=== PATIENT | female | born 1995 | race American Indian/Alaskan Native ===

== ENCOUNTER 2021-02-08 11:29 | Outpatient (CLI) | payer MEDICAID ==
[2021-02-08 12:08] VITALS: BP 117/73
[2021-02-08] MEDS ORDERED: LACTATED RINGERS 1,000 ML IV ONE (12:09)
== END 2021-02-08 12:39 | disposition home or self-care (01) ==
LOC: TRG 11:29 → APU 11:30 → TRG 12:39
PROVIDERS: ATTEND Obstetrics & Gynecology
DX: Z34.93 Encounter for supervision of normal pregnancy, unspecified, third trimester (principal); Z3A.37 37 weeks gestation of pregnancy
CPT/HCPCS: 59025

== ENCOUNTER 2021-02-19 04:02 | Inpatient (IN) | payer MEDICAID ==
[2021-02-19] MEDS ORDERED: LOPERAMIDE 2 MG CAP PO PRN (10:43)
[2021-02-19] MEDS ORDERED: METHYLERGONOVINE MALEATE 0.2 MG/ML VIAL IM PRN (10:43)
[2021-02-19] MEDS ORDERED: TERBUTALINE 1 MG/1 ML INJ SUB-Q PRN (11:00)
[2021-02-19] MEDS ORDERED: LIDOCAINE (2%) 20 MG/1 ML VIAL 20 ML MDV INFILTRATI NR (11:00)
[2021-02-19] MEDS ORDERED: ePHEDrine SULFATE 50 MG/1 ML INJ IV PRN (11:00)
[2021-02-19] MEDS ORDERED: ACETAMINOPHEN 325 MG TAB PO PRN (11:00)
[2021-02-19] MEDS ORDERED: OXYTOCIN 10 UNIT/1 ML INJ IM PRN (11:00)
[2021-02-19] MEDS ORDERED: miSOPROStol 200 MCG TAB PR PRN (11:00)
[2021-02-19] MEDS ORDERED: OXYTOCIN DRIP 30 UNITS/500 ML BAG IV SCH ×4 (11:00→21:30)
[2021-02-19] MEDS ORDERED: BUTORPHANOL 2 MG/1 ML INJ IV PRN (11:00)
[2021-02-19] MEDS ORDERED: CARBOPROST TROMETHAMINE 250 MCG/1 ML INJ IM PRN (11:00)
[2021-02-19] MEDS ORDERED: fentaNYL 100 MCG/2 ML INJ IV PRN (11:00)
[2021-02-19] MEDS ORDERED: NALOXONE 0.4 MG/1 ML INJ IV PRN ×2 (11:00→21:30)
[2021-02-19] MEDS ORDERED: ONDANSETRON 4 MG/2 ML INJ IV PRN ×2 (11:00→21:30)
[2021-02-19 11:10] LABS: Hematocrit 40.4 % (30.3-42.9); Hemoglobin 13.8 gm/dl (10.1-14.3); Mean Corpuscular HGB Conc 34 % (30-34); Mean Corpuscular Volume 83 fl (79-97); Platelet Count 147 K/mm3 (140-440); Red Blood Count 4.89 M/mm3 (3.65-5.03); Red Cell Distribution Width 14.8 % (13.2-15.2)
[2021-02-19] MEDS: LACTATED RINGERS 1,000 ML IV SCH ×3 (11:50→17:20)
--- NOTE | 2021-02-19 13:23 | History and Physical Report ---
History of Present Illness Date of examination: 02/19/21 Date of admission: 02/19/21 Chief complaint: contractions History of present illness: Pt is a 25 year old -Japanese primigravida KATHE 02/26/21 at 39w0d who presents with painful regular contractions cervical change from 3 to 5 cm. She denies vaginal bleeding or leakage of fluid. 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 She is GBS negative. 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: chlamydia (treated with negative test of cure ), gonorrhea (treated with negative test of cure ), trichomonas (treated with negative test of cure ) Family/Genetic History: cancer Social history: no significant social history - Obstetrical History Expected Date of Delivery: 02/26/21 Actual Gestation: 39 Week(s) 0 Day(s) : 1 Medications and Allergies Allergies Allergy/AdvReac Type Severity Reaction Status Date / Time No Known Allergies Allergy Verified 02/08/21 12:08 Active Meds: Active Medications Acetaminophen (Acetaminophen 325 Mg Tab) 650 mg PO Q4H PRN PRN Reason: Pain, Mild (1-3) Butorphanol Tartrate (Butorphanol 2 Mg/1 Ml Inj) 1 mg IV Q2H PRN PRN Reason: Pain, Moderate(4-6) LABOR PAIN Carboprost Tromethamine (Carboprost Tromethamine 250 Mcg/1 Ml Inj) 250 mcg IM ONCE PRN PRN Reason: Uterine Bleeding Stop: 02/20/21 10:59 Ephedrine Sulfate (Ephedrine Sulfate 50 Mg/1 Ml Inj) 10 mg IV Q2M PRN PRN Reason: Hypotension Fentanyl (Fentanyl 100 Mcg/2 Ml Inj) 100 mcg IV Q2H PRN PRN Reason: Pain,Severe (7-10) LABOR PAIN Last Admin: 02/19/21 11:38 Dose: 100 mcg Documented by: Oxytocin/Sodium Chloride (Pitocin/Ns 30 Unit/500ml) 30 units in 500 mls @ 2 mls/hr IV TITR WILBERT; Protocol Lactated Ringer's (Lactated Ringers) 1,000 mls @ 125 mls/hr IV DIRECT WILBERT Last Admin: 02/19/21 11:50 Dose: 125 mls/hr Documented by: Oxytocin/Sodium Chloride (Pitocin/Ns 30 Unit/500ml) 30 units in 500 mls @ 40 mls/hr IV TITR WILBERT; Protocol Lidocaine (Lidocaine (2%) 20 Mg/1 Ml Vial 20 Ml Mdv) 20 ml INFILTRATI ONCE NR Stop: 02/19/21 16:00 Loperamide HCl (Loperamide 2 Mg Cap) 2 mg PO ONCE PRN PRN Reason: give with Hemabate Stop: 02/20/21 10:42 Methylergonovine Maleate (Methylergonovine Maleate 0.2 Mg/Ml Vial) 0.2 mg IM ONCE PRN PRN Reason: Uterine Bleeding Stop: 02/20/21 10:42 Mineral Oil (Mineral Oil 30 Ml Oral Liqd) 30 ml PO QHS PRN PRN Reason: Constipation Misoprostol (Misoprostol 200 Mcg Tab) 800 mcg HI ONCE PRN PRN Reason: Uterine Bleeding Stop: 02/20/21 10:59 Naloxone HCl (Naloxone 0.4 Mg/1 Ml Inj) 0.1 mg IV Q2MIN PRN PRN Reason: Res Rate </= 8 or 02 SAT < 92% Ondansetron HCl (Ondansetron 4 Mg/2 Ml Inj) 4 mg IV Q8H PRN PRN Reason: Nausea And Vomiting Oxytocin (Oxytocin 10 Unit/1 Ml Inj) 10 unit IM ONCE PRN PRN Reason: Uterine Bleeding Stop: 02/20/21 10:59 Terbutaline Sulfate (Terbutaline 1 Mg/1 Ml Inj) 0.25 mg SUB-Q ONCE PRN PRN Reason: Hyperstimulation/Hypertonicity Stop: 02/20/21 10:59 Review of Systems All systems: negative - Vital Signs Vital signs: Vital Signs Pulse BP 94 H 106/72 02/19/21 04:30 02/19/21 04:30 Temp Pulse Resp BP Pulse Ox 97.7 F 105 H 16 125/81 100 02/19/21 11:51 02/19/21 13:22 02/19/21 09:21 02/19/21 12:49 02/19/21 13:22 - Physical Exam Breasts: Positive: deferred Abdomen: Positive: soft (obese, gravid ) Genitourinary (Female): Positive: normal external genitalia Uterus: Positive: enlarged (gravid ) Extremities: Positive: normal - Obstetrical FHR: auscultation normal Uterine Contraction Monitor Mode: External Cervical Dilatation: 5 Uterine Contraction Pattern: Regular Uterine Tone Measurement Phase: Resting Uterine Contraction Intensity: Moderate Results Result Diagrams: 02/19/21 10:09 Abnormal lab results 02/19/21 Range/Units 10:09 WBC 11.1 H (4.5-11.0) K/mm3 All other labs normal. Assessment and Plan A: IUP at 39w0d Active labor Morbid Obesity Silent Alpha Thalassemia carrier status GBS Negative P: Admit to labor and delivery Routine intrapartum care [place] monitor maternal and status
--- NOTE | 2021-02-19 14:30 | Anesthesia Consultation ---
Anesthesia Consult and Med Hx Date of service: 02/19/21 - Airway Anesthetic Teeth Evaluation: Good ROM Head & Neck: Adequate Intubation Access Assessment: Probably Good - Pre-Operative Health Status Proposed Anesthetic Plan: Epidural - Pulmonary Hx Smoking: No Hx Asthma: No Hx Respiratory Symptoms: No SOB: No COPD: No Home Oxygen Therapy: No Hx Pneumonia: No Hx Sleep Apnea: No - Cardiovascular System Hx Hypertension: No Hx Coronary Artery Disease: No Hx Heart Attack/AMI: No Hx Angina: No Hx Percutaneous Transluminal Coronary Angioplasty (PTCA): No Hx Cardia Arrhythmia: No Hx Pacemaker: No Hx Internal Defibrillator: No Hx Valvular Heart Disease: No Hx Heart Murmur: No Hx Peripheral Vascular Disease: No - Central Nervous System Hx Neuromuscular Disorder: No Hx Seizures: No CVA: No Hx Back Pain: Yes Hx Psychiatric Problems: No - Gastrointestinal Hx Ulcer: No Hx Gastroesophageal Reflux Disease: Yes - Endocrine Hx Renal Disease: No Hx End Stage Renal Disease: No Hx Cirrhosis: No Hx Liver Disease: No Hx Insulin Dependent Diabetes: No Hx Non-Insulin Dependent Diabetes: No Hx Thyroid Disease: No Hx Hypothyroidism: No Hx Hyperthyroidism: No - Hematic Hx Anemia: Yes Hx Sickle Cell Disease: Yes (Trait) - Other Systems Hx Alcohol Use: No Hx Substance Use: No Hx Cancer: No Hx Obesity: Yes
--- NOTE | 2021-02-19 14:32 | Progress Note ---
Labor Epidural - Labor Epidural Start Time: 14:13 Stop Time: 14:17 Performed by:: ANGELICA BENNETT Procedure: Patient is requesting a laboring epidural for laboring pain. Patient IDed, H&P reviewed, all questions and concerns were answered, and consent was signed. Timeout was performed at bedside. Patient in sitting position. Sterile prep and drape was performed. [3] ml of 1% lidocaine skin wheal at L[3]- L [4]. 18- gauge Tiarra epidural needle was advanced to loss of resistance with saline technique 8cm. Negative CSF negative blood. Epidural catheter advanced to [12] centimeters. [NEGATIVE] Aspiration [NEGATIVE] test dose. Sterile dressing applied. Patient tolerated procedure.
[2021-02-19] MEDS ORDERED: fentaNYL-BUPIV 2 MCG/ML-0.125% 200 MCG/100 ML BAG EPIDURAL SCH (15:00)
[2021-02-19] MEDS ORDERED: NALOXONE 2 MG/2 ML INJ IV PRN (15:00)
[2021-02-19] MEDS: ePHEDrine SULFATE 50 MG/1 ML INJ IV PRN ×2 (15:55→16:15)
[2021-02-19] MEDS ORDERED: METOCLOPRAMIDE 10 MG/2 ML INJ IV ONE ×2 (17:30→17:41)
[2021-02-19] MEDS ORDERED: BICITRA ORAL LIQD 30ML PO ONE (17:30)
[2021-02-19] MEDS ORDERED: FAMOTIDINE 20 MG/2 ML INJ IV ONE ×2 (17:41→18:00)
[2021-02-19] MEDS ORDERED: BICITRA ORAL LIQD 30ML PO SCH (17:41)
[2021-02-19] MEDS ORDERED: LACTATED RINGERS 1,000 ML IV SCH (17:45)
[2021-02-19] MEDS ORDERED: ceFAZolin/STERILE WATER 2 GM/20 ML SYRINGE IV ONE (17:50)
[2021-02-19] MEDS ORDERED: ceFAZolin/Water 2 GM/20 ML 2 GM/20 ML SYRINGE IV NR (18:00)
[2021-02-19] MEDS ORDERED: WATER FOR IRRIG STERILE 1,500 ML BOTTLE IR ONE (18:01)
[2021-02-19] MEDS ORDERED: SODIUM CHLORIDE 0.9% IRR 1,500 ML BOTTLE IR ONE (18:01)
[2021-02-19] MEDS ORDERED: LIDOCAINE 2%/EPINEPHRINE 1:200,000 VIAL (20 ML) INFILTRATI ONE ×2 (18:05→18:06)
[2021-02-19] MEDS ORDERED: ONDANSETRON 4 MG/2 ML INJ ONE ×2 (18:10)
[2021-02-19] MEDS ORDERED: OXYTOCIN 10 UNIT/1 ML INJ ONE (18:10)
--- NOTE | 2021-02-19 18:55 | Procedure Note ---
OB Delivery Note - Delivery Date of Delivery: 02/19/21 Surgeon: JOHN MADDEN Estimated blood loss: other (1341) - Section Preop diagnosis: nonreassuring FHR tracing Postop diagnosis: same section procedure: section, primary low transverse Disposition: PACU Complications: intra-op hemorrhage, uterine atony Narrative: Please see operative report. - Infant A at 1 minute: 7 at 5 minutes: 8 Infant Gender: Female (3029g (6lb 11oz) @ 1806 pm)
[2021-02-19] MEDS ORDERED: KETOROLAC 30 MG/1 ML INJ ONE (18:56)
--- NOTE | 2021-02-19 19:02 | Operative Report ---
Operative Report Operative Report: Date of procedure: February 19, 2021 Preoperative diagnosis: 1) IUP at 39w0d 2) Nonreassuring status- Bradyhcardia 3) Morbid Obesity 4) Thick Meconium Postoperative diagnosis: Same 5) Uterine Atony 6) Intraoperative Hemorrhage Procedure: Primary low transverse section Surgeon: Ayla Herrera M.D. Anesthesia: Regional Findings: 1) Viable female , Apgars 7 and 8, weight 3029 g, (6 lb 11 oz) in cephalic presentation. Nuchal cord x 1 2) Normal-appearing uterus ovaries and tubes Estimated blood loss: 1341 mL by QBL IV fluids: 600 mL Urine output: 300 mL, clear at the end of the procedure Drains: [place] to gravity Meds: 40 units of pitocin, Methergine 0.2 mg IM Specimens: Placenta to pathology Complications:None. Counts correct x 3 Disposition: Stable to PACU Indication for procedure: Pt is a 25 year old primigravida at 39w0d who progressed to 6.5 cm with bradycardia after rupture of membranes with egress of copious amount of meconium stained amniotic fluid. The decision was made to proceed with delivery. Operation in detail: After the risks, benefits, alternatives and complications were explained to the patient she gave informed consent for the procedure. She was subsequently taken to the operating room where regional anesthesia was noted to be adequate. She was placed in the dorsal supine position with leftward tilt and prepped and draped in a normal sterile fashion. heart tones were noted prior to incision. A timeout was performed. A Pfannenstiel skin incision was made with the knife and carried down to the layer of the fascia with the Bovie. The fascia was incised in the midline and the fascial incision was extended bilaterally with the Bovie. The fascial incision was then stretched. The rectus muscles were then in the midline and partially transected for adequate visualization. The peritoneum was then entered bluntly. The peritoneal incision was extended with good visualization of the bladder. The peritoneal incision was then stretched. An Igor retractor was placed. The bladder blade was then placed. The vesicouterine peritoneum was grasped with smooth pick ups and incised with Metzenbaum scissors . A bladder flap was then created digitally and the bladder blade was replaced. A transverse incision was made in the lower uterine segment with a knife and extended bilaterally with the bandage scissors. Amniotomy was performed with egress of clear fluid. head delivered with ease, nuchal cord was reduced, followed by shoulders and body. bulb suctioned at delivery. Cord clamped and cut. handed to NICU staff in attendance. Cord blood was collected. The placenta was then delivered manually. The uterus was then exteriorized and cleared of all clots and debris. The uterus was noted to be atonic. Additional pitocin and Methergine 0.2 mg IM was administered with improvement in uterine tone. The hysterotomy was then reapproximated with 0 Monocryl in a running locked fashion. A second layer of the same suture was used in imbricating fashion. The hysterotomy was inspected and hemostasis was noted. The gutters were irrigated and cleared of all clots and debris. The hysterotomy was again inspected and noted to be hemostatic. Surgicel was placed over the hysterotomy. The Igor retractor was removed. The uterus was placed back into the peritoneal cavity. The peritoneum was reapproximated with 0 Monocryl in a running fashion incorporating the rectus muscles. Surgicel was placed over the rectus muscles. The fascia was reapproximated with 0 Vicryl in a running fashion. The subcutaneous tissue was reapproximated with 2-0 Vicryl in a running fashion. The skin was reapproximated with 3-0 Monocryl in a subcuticular fashion. The incision was then covered with steri strips and a pressure dressing. The procedure was then ended. The patient tolerated the procedure well and was taken to the PACU in stable condition. All instrument, lap, and needle counts were correct 3.
--- NOTE | 2021-02-19 20:22 | Anesthesia Day of Surgery ---
Anesthesia Day of Surgery - Day of Surgery Patient Examined: Yes Patient H&P Reviewed: Yes Patient is NPO: Yes Beta Blockers: No Cardiac Clearance: No Pulmonary Clearance: No Nate's Test: Negative
--- NOTE | 2021-02-19 20:23 | Post Anesthesia Evaluation ---
- Post Anesthesia Evaluation Patient Participated: Yes Airway Patent: Yes Stable Respiratory Function: Yes Nausea/Vomiting: No Temp > 96.8F: Yes Pain Manageable: Yes Adequeate Hydration: Yes Anesthesia Complications: No Block Receding Appropriately: Yes Patient on Ventilator: No
[2021-02-19] MEDS ORDERED: WITCH HAZEL/ GLYCERIN PAD TP PRN (21:30)
[2021-02-19] MEDS ORDERED: MORPHINE 2 MG/1 ML INJ IV PRN (21:30)
[2021-02-19] MEDS ORDERED: D5W/LACTATED RINGERS 1,000 ML IV SCH (21:30)
[2021-02-19] MEDS ORDERED: SIMETHICONE 80 MG CHEW TAB PO PRN (21:30)
[2021-02-19] MEDS ORDERED: LANOLIN/ZINC/DIMETHICONE (LANSINOH) 7 GM TP PRN (21:30)
[2021-02-19] MEDS ORDERED: MAGNESIUM HYDROXIDE (MOM) ORAL LIQD UDC PO PRN (21:30)
[2021-02-19] MEDS ORDERED: MORPHINE 4 MG/1 ML INJ IV PRN (21:30)
[2021-02-19] MEDS ORDERED: MINERAL OIL 30 ML ORAL LIQD PO PRN (22:00)
[2021-02-20] MEDS: KETOROLAC 30 MG/1 ML INJ IV SCH ×4 (00:43→18:42)
[2021-02-20] MEDS: ceFAZolin/NS 1 GM/50 ML 1 GM/50 ML BAG IV SCH ×2 (01:12→12:50)
--- NOTE | 2021-02-20 10:42 | Progress Note ---
Assessment and Plan - Patient Problems (1) Status post primary low transverse section Current Visit: Yes Status: Acute Plan to address problem: Continue routine PP orders Keep dressing clean and dry, remove on POD#2 Anticipate d/c home in 24-48 hrs if stable (2) Morbid obesity with BMI of 40.0-44.9, adult Current Visit: Yes Status: Acute Subjective - Subjective Date of service: 02/20/21 Principal diagnosis: S/P primary C/S; POD#1 Interval history: Pt is a 25 year old -[place] primigravida KATHE 02/26/21 at 39w0d who presents with painful regular contractions cervical change from 3 to 5 cm. She denies vaginal bleeding or leakage of fluid. She has had care at [facility] since 9 wks complicated by morbid obesity, silent alpha thalassemia carrier status, gonorrhea, chlamydia and trichmonas with negative test of cure on 09/17/2020. She is GBS negative. Progressed to 6.5 cm with bradycardia after rupture of membranes with egress of copious amount of meconium stained amniotic fluid. The decision was made to proceed with delivery. Patient reports: appetite normal, voiding normally, pain well controlled (with medications), flatus, ambulating normally, no bowel movement [place]: in NICU, bottle feeding Objective - Vital Signs Latest vital signs: Vital Signs Temp Pulse Resp BP Pulse Ox Pulse Ox 02/20/21 08:43 98.5 F 80 18 104/66 97 02/20/21 05:11 98.2 F 83 20 106/69 98 02/20/21 00:46 98.2 F 102 H 18 122/81 99 02/19/21 22:20 98 02/19/21 21:56 18 99 02/19/21 20:45 99 02/19/21 20:18 90 116/66 99 02/19/21 19:55 87 117/78 99 02/19/21 19:40 98.7 F 88 13 121/68 98 02/19/21 19:25 87 109/65 98 02/19/21 19:10 83 120/60 97 02/19/21 19:05 83 113/58 99 02/19/21 19:00 98.0 F 78 13 104/65 99 02/19/21 17:43 94 H 100 02/19/21 17:40 120 H 92/52 02/19/21 17:38 91 H 100 02/19/21 17:37 87 112/55 02/19/21 17:36 96 H 79/45 02/19/21 17:33 95 H 99 02/19/21 17:30 90 96/55 02/19/21 17:28 88 100 02/19/21 17:23 93 H 99 02/19/21 17:20 95 H 103/60 02/19/21 17:18 106 H 98 02/19/21 17:17 113 H 98/56 02/19/21 17:13 120 H 99 02/19/21 17:12 114 H 92/50 02/19/21 17:08 97 H 98 02/19/21 17:07 109 H 88/53 02/19/21 17:03 113 H 99 02/19/21 17:01 96 H 113/64 02/19/21 16:58 99 H 99 02/19/21 16:56 94 H 109/60 02/19/21 16:53 98 H 98 02/19/21 16:50 112 H 87/50 02/19/21 16:48 102 H 98 02/19/21 16:45 110 H 89/51 02/19/21 16:43 116 H 97 02/19/21 16:40 110 H 87/50 02/19/21 16:38 112 H 98 02/19/21 16:35 105 H 90/50 02/19/21 16:33 98 H 98 02/19/21 16:30 104 H 98/55 02/19/21 16:28 100 H 97 02/19/21 16:25 104 H 90/53 02/19/21 16:23 102 H 98 02/19/21 16:20 117 H 84/52 02/19/21 16:18 109 H 98 02/19/21 16:15 95 H 85/50 02/19/21 16:13 98 H 97 02/19/21 16:10 100 H 82/51 02/19/21 16:08 95 H 98 02/19/21 16:06 96 H 90/55 02/19/21 16:03 88 97 02/19/21 16:00 109 H 77/45 02/19/21 15:58 107 H 98 02/19/21 15:56 104 H 81/41 02/19/21 15:53 95 H 71/48 97 02/19/21 15:50 102 H 72/45 02/19/21 15:48 96 H 97 02/19/21 15:45 102 H 74/42 02/19/21 15:43 100 H 98 02/19/21 15:41 104 H 73/38 02/19/21 15:38 111 H 98 02/19/21 15:36 96 H 90/54 02/19/21 15:33 114 H 98 02/19/21 15:31 110 H 91/55 02/19/21 15:28 98 H 97 02/19/21 15:25 103 H 86/54 02/19/21 15:23 106 H 97 02/19/21 15:20 117 H 87/54 02/19/21 15:18 116 H 97 02/19/21 15:16 99 H 98/55 02/19/21 15:13 104 H 97 02/19/21 15:10 105 H 94/54 02/19/21 15:08 107 H 97 02/19/21 15:05 107 H 93/56 02/19/21 15:03 100 H 97 02/19/21 15:00 89 100/59 02/19/21 14:58 89 97 02/19/21 14:55 100 H 93/55 02/19/21 14:53 95 H 98 02/19/21 14:50 106 H 91/53 02/19/21 14:48 102 H 98 02/19/21 14:47 93 H 99/55 02/19/21 14:43 104 H 97 02/19/21 14:38 93 H 97 02/19/21 14:35 106 H 91/60 02/19/21 14:33 105 H 94/55 98 02/19/21 14:31 96 H 98/55 02/19/21 14:29 101 H 98/53 02/19/21 14:28 95 H 98 02/19/21 14:27 101 H 102/52 02/19/21 14:25 96 H 102/51 02/19/21 14:23 94 H 112/59 98 02/19/21 14:21 94 H 113/60 02/19/21 14:19 90 114/64 02/19/21 14:18 96 H 98 08/03/21 14:17 100 H 119/61 94 02/19/21 14:13 100 H 99 02/19/21 14:08 99 H 99 02/19/21 14:07 97 H 117/61 02/19/21 14:03 103 H 97 02/19/21 13:52 93 H 97 02/19/21 13:47 94 H 98 02/19/21 13:42 89 97 02/19/21 13:37 92 H 99 02/19/21 13:32 96 H 97 02/19/21 13:27 94 H 98 02/19/21 13:22 105 H 100 02/19/21 13:16 105 H 98 02/19/21 13:11 102 H 98 02/19/21 13:06 101 H 99 02/19/21 13:01 101 H 99 02/19/21 12:56 90 100 02/19/21 12:51 89 99 02/19/21 12:49 86 125/81 02/19/21 12:46 104 H 100 02/19/21 12:41 94 H 99 02/19/21 12:36 107 H 100 02/19/21 12:25 89 99 02/19/21 12:20 101 H 115/68 98 02/19/21 12:15 91 H 98 02/19/21 12:10 93 H 99 02/19/21 12:05 96 H 98 02/19/21 12:00 92 H 97 02/19/21 11:59 98 02/19/21 11:55 98 H 98 02/19/21 11:51 97.7 F 02/19/21 11:50 96 H 98 02/19/21 11:45 96 H 98 02/19/21 11:40 96 H 99 02/19/21 11:35 96 H 98 02/19/21 11:31 108 H 123/70 02/19/21 11:30 108 H 100 02/19/21 11:25 107 H 99 02/19/21 11:20 92 H 99 02/19/21 11:15 100 H 99 02/19/21 11:10 98 H 98 02/19/21 11:05 96 H 99 Intake and Output 02/19/21 02/20/21 02/20/21 23:59 07:59 15:59 Intake Total 1800 240 Output Total 3750 1000 Balance -1950 -1000 240 Intake: IV 1650 Lactated Ringers 1,000 ml 950 @ 125 mls/hr IV DIRECT WILBERT Rx#:[id number] Oral 150 Intake, Free Water 240 Output: Urine 3750 1000 Indwelling Catheter 1000 Uretheral ([place]) 1725 1000 Other: Total, Intake Amount 100 Total, Output Amount 600 Estimated Blood Loss 1,341 - Exam Breasts: Present: normal Cardiovascular: Present: Regular rate Lungs: Present: Normal air movement Abdomen: Present: soft, tenderness Uterus: Present: firm, fundal height below umbilicus (U-2) Extremities: Present: edema Deep Tendon Reflex Grade: Normal +2 Incision: Present: dressed (no shadow drainage or bleeding noted) - Labs Labs: Abnormal lab results 02/19/21 Range/Units 10:09 WBC 11.1 H (4.5-11.0) K/mm3
[2021-02-20] MEDS ORDERED: ceFAZolin/NS 1 GM/50 ML 1 GM/50 ML BAG IV ONE (12:48)
[2021-02-20] MEDS: FERROUS SULFATE 325 MG TAB PO SCH (12:50)
[2021-02-20] MEDS: oxyCODONE /ACETAMINOPHEN 5-325MG TAB PO PRN (14:35)
[2021-02-20 17:45] LABS: Hematocrit 36.1 % (30.3-42.9)
[2021-02-20] MEDS ORDERED: KETOROLAC 30 MG/1 ML INJ ONE (18:34)
[2021-02-20] MEDS ORDERED: MEASLES, MUMPS & RUBELLA 12,500 UNIT/0.5 ML VACCINE SUB-Q ONE (19:19)
[2021-02-21] MEDS: oxyCODONE /ACETAMINOPHEN 5-325MG TAB PO PRN ×3 (01:00→23:41)
[2021-02-21] MEDS ORDERED: TETANUS,DIPH,PERTUSS(ACELL) VACCINE 0.5 ML SYRINGE IM ONE (06:00)
--- NOTE | 2021-02-21 08:28 | Progress Note ---
Assessment and Plan - Patient Problems (1) Status post primary low transverse section Current Visit: Yes Status: Acute Plan to address problem: Continue routine PP orders Shower and remove dressing today, keep incision clean and dry Anticipate d/c home in 24 hrs if stable (2) Morbid obesity with BMI of 40.0-44.9, adult Current Visit: Yes Status: Acute Subjective - Subjective Date of service: 02/21/21 Principal diagnosis: S/P primary C/S; POD#2 Interval history: Pt is a 25 year old -Citizen Of [place] primigravida KATHE 02/26/21 at 39w0d who presents with painful regular contractions cervical change from 3 to 5 cm. She denies vaginal bleeding or leakage of fluid. She has had care at [facility] since 9 wks complicated by morbid obesity, silent alpha thalassemia carrier status, gonorrhea, chlamydia and trichmonas with negative test of cure on 09/17/2020. She is GBS negative. Progressed to 6.5 cm with bradycardia after rupture of membranes with egress of copious amount of meconium stained amniotic fluid. The decision was made to proceed with delivery. Patient reports: appetite normal, voiding normally, pain well controlled (with medications), flatus, ambulating normally [place]: in NICU Objective - Vital Signs Latest vital signs: Vital Signs Temp Pulse Resp BP Pulse Ox Pulse Ox 02/21/21 02:00 18 02/21/21 01:04 97.0 F L 89 18 109/68 99 02/21/21 01:00 18 02/20/21 23:00 99 02/20/21 18:23 98 02/20/21 16:42 98.0 F 84 18 111/72 95 02/20/21 16:00 98 02/20/21 12:42 98.7 F 83 18 102/66 98 02/20/21 12:00 98 02/20/21 10:40 98 02/20/21 08:43 98.5 F 80 18 104/66 97 Intake and Output 02/20/21 02/21/21 02/21/21 23:59 07:59 15:59 Intake Total 900 Output Total 200 Balance 700 Intake: Oral 240 Intake, Free Water 660 Output: Urine 200 Void 200 Other: Total, Intake Amount 240 Total, Output Amount 200 # Voids Void 3 1 - Exam Breasts: Present: normal Cardiovascular: Present: Regular rate Lungs: Present: Normal air movement Abdomen: Present: soft, tenderness Uterus: Present: firm, fundal height below umbilicus (U-3) Extremities: Present: edema Deep Tendon Reflex Grade: Normal +2 (slight edema in bilateral ankles/feet) Incision: Present: dressed (no shadow drainage or bleeding noted)
[2021-02-21] MEDS: FERROUS SULFATE 325 MG TAB PO SCH (11:22)
[2021-02-21] MEDS: IBUPROFEN 800 MG TAB PO PRN (17:44)
[2021-02-22] MEDS: IBUPROFEN 800 MG TAB PO PRN ×2 (05:37→17:01)
--- NOTE | 2021-02-22 08:45 | Progress Note ---
Assessment and Plan A: POD#3 s/p primary section at term Morbid Obesity P: Routine postop care Anticipate discharge later today Subjective - Subjective Date of service: 02/22/21 Principal diagnosis: S/P primary C/S; POD#3 Interval history: No overnight events. Plus flatus. No bowel movement. Baby remains in NICU for feeding observation. Patient reports: appetite normal, voiding normally, pain well controlled, flatus, ambulating normally, no bowel movement : in NICU Objective - Vital Signs Latest vital signs: Vital Signs Temp Pulse Resp BP Pulse Ox Pulse Ox 02/22/21 08:10 97.7 F 85 18 116/65 99 02/22/21 05:37 20 02/21/21 23:41 20 02/21/21 23:24 98.1 F 84 20 116/74 99 02/21/21 22:35 98 02/21/21 16:49 98.3 F 86 18 107/73 99 02/21/21 12:28 98.2 F 80 18 104/59 98 02/21/21 09:25 99 Intake and Output 02/21/21 02/22/21 02/22/21 22:59 06:59 14:59 Intake Total 1320 480 Balance 1320 480 Intake: Oral 720 Intake, Free Water 600 480 Other: Total, Intake Amount 240 # Voids Void 3 2 - Exam Breasts: Absent: deferred Abdomen: Present: soft (obese) Uterus: Present: fundal height at umbilicus Extremities: Present: edema Incision: Present: intact
--- NOTE | 2021-02-22 08:49 | Discharge Summary ---
Providers - Providers Date of Admission: 02/19/21 10:43 Date of discharge: 02/22/21 Attending physician: CHRISTIAN BLAS 02/19/21 21:30 Consult to Market Intelligence Consultant [CONS] Routine Reason For Exam: Primary care physician: CHRISTIAN BLAS Hospitalization Reason for admission: active labor Delivery: Procedure: section, primary low transverse Procedure details: Please see delivery note. Episiotomy: none Incision: intact Other procedures: none complications: none Discharge diagnosis: IUP at term delivered [place] baby: female Hospital course: Patient was admitted in active labor and went on to have a primary section which she tolerated well. Her postoperative course was uncomplicated and she met discharge criteria on postoperative day #3. She will follow-up in 2 weeks for an incision check. Condition at discharge: Stable Disposition: DC-01 TO HOME OR SELFCARE - Discharge Diagnoses (1) Term of female Status: Acute (2) Morbid obesity with BMI of 40.0-44.9, adult Status: Acute (3) Status post primary low transverse section Status: Acute Plan - Discharge Medications Prescriptions: Ibuprofen [Motrin] 800 mg PO Q8HR PRN #30 tablet PRN Reason: Pain, Moderate (4-6) oxyCODONE /ACETAMINOPHEN [Percocet 5/325] 1 tab PO Q6HR PRN #30 tablet PRN Reason: Pain - Provider Discharge Summary Activity: routine, no sex for 6 weeks, no heavy lifting 4 weeks, no strenuous exercise Diet: routine Instructions: routine Additional instructions: [] Smoking cessation referral if applicable(refer to patient education folder for contact #) [] Refer to [facility] Booklet Call your doctor immediately for: * Fever > 100.5 * Heavy vaginal bleeding ( >1 pad per hour) * Severe persistent headache * Shortness of breath * Reddened, hot, painful area to leg or breast * Drainage or odor from incision. * Keep incision clean and dry at all times and follow doctor's instructions regarding bathing/showering - Follow up plan Follow up: PAPI TITUS CNM [Advanced Practice Nurse] - 14 Days (please call to schedule incision check )
[2021-02-22] MEDS ORDERED: MAGNESIUM HYDROXIDE (MOM) ORAL LIQD UDC PO SCH (09:00)
[2021-02-22] MEDS: FERROUS SULFATE 325 MG TAB PO SCH (10:29)
[2021-02-22] MEDS ORDERED: MEASLES, MUMPS & RUBELLA 12,500 UNIT/0.5 ML VACCINE SUB-Q ONE (10:30)
[2021-02-22 17:04] VITALS: BP 115/73
== END 2021-02-22 19:00 | disposition home or self-care (01) | DRG 765 ==
LOC: TRG 04:02 → APU 04:03 → LD 10:43 → TRG 10:43 → LD 11:31 → OB 20:58
PROVIDERS: ADMIT Obstetrics & Gynecology; ATTEND Obstetrics & Gynecology
PROC: 10D00Z1 Extraction of Products of Conception, Low, Open Approach (ICD-10-PCS; principal; 2021-02-19)
PROC: 3E0134Z Introduction of Serum, Toxoid and Vaccine into Subcutaneous Tissue, Percutaneous Approach (ICD-10-PCS; 2021-02-20)
PROC: 3E0234Z Introduction of Serum, Toxoid and Vaccine into Muscle, Percutaneous Approach (ICD-10-PCS; 2021-02-22)
PROC: 3E0134Z Introduction of Serum, Toxoid and Vaccine into Subcutaneous Tissue, Percutaneous Approach (ICD-10-PCS; 2021-02-22)
DX: O77.0 Labor and delivery complicated by meconium in amniotic fluid (principal); O72.1 Other immediate postpartum hemorrhage; O99.214 Obesity complicating childbirth; O75.0 Maternal distress during labor and delivery; Z3A.39 39 weeks gestation of pregnancy; E66.01 Morbid (severe) obesity due to excess calories; Z37.0 Single live birth; Z23 Encounter for immunization; Z20.822 Contact with and (suspected) exposure to COVID-19; D56.3 Thalassemia minor; O76 Abnormality in fetal heart rate and rhythm complicating labor and delivery; O69.81X0 Labor and delivery complicated by cord around neck, without compression, not applicable or unspecified
CPT/HCPCS: 36415; 59025; 76815; 76819; 84112; 85014; 85018; 85027; 86592; 86850; 86900; 86901; 88307; 90471; 90707; 90715; 99211; G0378; G0463; J0690; J1885; J2270; J2405; J2590; J2765; J3010; J7120; U0003